=== PATIENT | female | born 1980 | race African-American/Black ===

== ENCOUNTER 2017-06-17 21:00 | Emergency (ER) | payer MEDICARE ==
[~2017-06-17] VITALS: Ht 154.9 cm; Wt 86.2 kg
[2017-06-17] MEDS: HYDROCODONE/APAP 5-325MG TABLET PO ONE (22:11)
[2017-06-17] MEDS: ONDANSETRON ODT 4 MG TAB.RAPDIS SL ONE (22:11)
[2017-06-17] MEDS: PENICILLIN G BENZATHINE 2.4 MMU/4 ML DISP.SYRIN IM ONE (22:14)
--- NOTE | 2017-06-17 22:18 | NUR ---
Patient discharged to home in stable conditon. Written and verbal after care instructions given. Patient verbalizes understanding of instructions.
[2017-06-17] MEDS ORDERED: HYDROCODONE/APAP 5-325MG TABLET ONE (22:19)
[2017-06-17] MEDS ORDERED: ONDANSETRON ODT 4 MG TAB.RAPDIS ONE (22:19)
[2017-06-17] MEDS ORDERED: PENICILLIN G BENZATHINE 2.4 MMU/4 ML DISP.SYRIN IM ONE (22:20)
== END 2017-06-17 22:19 | disposition home or self-care (01) ==
LOC: ER 21:00
DX: K08.89 Other specified disorders of teeth and supporting structures (principal); I10 Essential (primary) hypertension; J45.909 Unspecified asthma, uncomplicated
CPT/HCPCS: A4663; Q0162

== ENCOUNTER 2024-04-11 10:35 | Emergency (ER) | payer MEDICARE, OTHER ==
[~2024-04-11] VITALS: Ht 154.9 cm; Wt 98.9 kg
[2024-04-11 11:06] VITALS: O2SAT 98
== END 2024-04-11 11:48 | disposition left against medical advice (07) ==
LOC: ER 10:35
DX: R07.89 Other chest pain (principal); I10 Essential (primary) hypertension; J45.909 Unspecified asthma, uncomplicated; Z60.2 Problems related to living alone
CPT/HCPCS: 71045; A4606; A4663

== ENCOUNTER 2025-04-25 10:13 | Emergency (ER) | payer MEDICARE, OTHER ==
[~2025-04-25] VITALS: Ht 154.9 cm; Wt 81.6 kg
[2025-04-25 10:20] VITALS: BP 147/75
[2025-04-25] MEDS ORDERED: IBUP-1955 PO (11:20)
[2025-04-25] MEDS ORDERED: SILV50CR32 TP (11:20)
[2025-04-25] MEDS ORDERED: SILVER SULFADIAZINE 1% CREAM 50 GM TP ONE (11:41)
[2025-04-25] MEDS ORDERED: TDAP DIPH,PERTUSS,TET VAC/PF 0.5 ML DISP.SYRIN IM ONE (11:42)
[2025-04-25] MEDS: TDAP DIPH,PERTUSS,TET VAC/PF 0.5 ML DISP.SYRIN IM ONE (12:02)
[2025-04-25] MEDS: SILVER SULFADIAZINE 1% CREAM 50 GM TP ONE (12:03)
[2025-04-25 12:49] VITALS: BP 147/75; O2SAT 76
[2025-04-26] MEDS ORDERED: OXYC-128 PO (11:08)
== END 2025-04-25 12:51 | disposition home or self-care (01) ==
LOC: ER 10:13
DX: S93.602A Unspecified sprain of left foot, initial encounter (principal); S50.02XA Contusion of left elbow, initial encounter; S80.02XA Contusion of left knee, initial encounter; S80.01XA Contusion of right knee, initial encounter; I11.9 Hypertensive heart disease without heart failure; G80.9 Cerebral palsy, unspecified; T24.211A Burn of second degree of right thigh, initial encounter; Z88.7 Allergy status to serum and vaccine; S20.213A Contusion of bilateral front wall of thorax, initial encounter; J45.909 Unspecified asthma, uncomplicated; W18.30XA Fall on same level, unspecified, initial encounter; Y93.89 Activity, other specified; Y92.89 Other specified places as the place of occurrence of the external cause; Y99.8 Other external cause status
CPT/HCPCS: 71045; 73080; 73630; 90715; A4606; A4663

== ENCOUNTER 2025-04-26 10:30 | Emergency (ER) | payer MEDICARE, OTHER ==
[~2025-04-26] VITALS: Ht 154.9 cm; Wt 81.6 kg
[~2025-04-26 10:30] MED LIST: IBUP-1955 PO; SILV50CR32 TP
[2025-04-26 10:41] VITALS: BP 144/79
[2025-04-26] MEDS ORDERED: SILVER SULFADIAZINE 1% CREAM 50 GM TP ONE (11:05)
[2025-04-26] MEDS ORDERED: OXYCODONE/APAP 5-325 MG TABLET ONE (11:05)
[2025-04-26] MEDS ORDERED: OXYC-128 PO (11:08)
[2025-04-26] MEDS: OXYCODONE/APAP 5-325 MG TABLET PO ONE (11:14)
[2025-04-26] MEDS: SILVER SULFADIAZINE 1% CREAM 50 GM TP ONE (11:25)
[2025-04-26 11:27] VITALS: BP 144/79; O2SAT 98
== END 2025-04-26 11:27 | disposition home or self-care (01) ==
LOC: ER 10:30
DX: T24.211D Burn of second degree of right thigh, subsequent encounter (principal); I10 Essential (primary) hypertension; J45.909 Unspecified asthma, uncomplicated; Z48.00 Encounter for change or removal of nonsurgical wound dressing; Z88.7 Allergy status to serum and vaccine; Z86.69 Personal history of other diseases of the nervous system and sense organs; Z60.2 Problems related to living alone; X08.8XXD Exposure to other specified smoke, fire and flames, subsequent encounter
CPT/HCPCS: 16020; A4606; A4663